=== PATIENT | male | born 1970 | race African-American/Black ===

== ENCOUNTER 2017-06-09 13:13 | Inpatient (IN) | payer OTHER ==
[2017-06-09] MEDS ORDERED: Albuterol Sulfate HFA (OR ONLY) ONE ×2 (14:56→21:00)
[2017-06-09] MEDS ORDERED: Propofol 200 MG/20 ML VIAL ONE (14:56)
[2017-06-09] MEDS ORDERED: Ondansetron HCl/PF 4 MG/2 ML Vial ONE (14:56)
[2017-06-09] MEDS ORDERED: Lidocaine 1% PF 5 ML VIAL ONE (14:56)
[2017-06-09] MEDS ORDERED: Succinylcholine Chloride 20 MG/ML 10 ml SYRINGE FS ONE (14:56)
[2017-06-09] MEDS ORDERED: Esmolol 100 MG/10 ML VIAL ONE (14:56)
[2017-06-09 15:11] LABS: #Eosinphils 0.2 thou/uL (0.0-0.7); #Lymphocytes 1.9 thou/uL (1.20-3.40); #Monocytes 1.1 thou/uL (0.11-0.59); %Basophils 0.2 % (0.0-1.0); %Eosinophils 1.5 % (0.0-10.0); %Lymphocytes 11.6 % (21.0-51.0); %Monocytes 6.6 % (0.0-10.0); Hemoglobin 12.4 g/dL (14.0-18.0); Mean Corpuscular HGB CONC 31.9 g/dL (32.0-36.0); Mean Corpuscular Hemoglobin 23.1 pg (27.0-31.0); Mean Corpuscular Volume 72.3 fl (80.0-94.0); Mean Platelet Volume 8.5 fL (7.4-10.4); Platelet Count 262 thou/uL (130-400); RBC Distribution Width 12.5 % (11.5-14.5); Red Blood Cell (RBC) Count 5.35 mill/uL (4.70-6.10); White Blood Cell (WBC) Count 16.2 thou/uL (4.8-10.8)
[2017-06-09 15:29] LABS: Hypochromia SLIGHT = 6-15 cells (100X) (0-5/hpf); MDiff Complete? YES; Microcytosis SLIGHT = 6-15 cells (100X) (0-5/hpf); Ovalocytes SLIGHT = 2-5 cells (100X) (0-1/hpf); PLT Morphology Comment Appears Adequate; Polychromasia SLIGHT = 2-3 cells (100X) (0-2/hpf); Target Cells SLIGHT = 2-5 cells (100X) (0-1/hpf)
[2017-06-09 15:32] LABS: ALT (SGPT) 11 U/L (8-55); AST (SGOT) 11 U/L (5-34); Albumin 4.1 g/dL (3.5-5.0); Alkaline Phosphatase 94 U/L (40-150); Anion Gap 15 mmol/L (10-20); BUN (Urea Nitrogen) 12 mg/dL (8.9-20.6); Bilirubin, Total 0.5 mg/dL (0.2-1.2); Calc. Creatinine Clearance 0 mL/min (70-130); Calcium 9.3 mg/dL (7.8-10.44); Carbon Dioxide 23 mmol/L (22-29); Chloride 101 mmol/L (98-107); Estimated GFR-MDRD Greater than 90; Globulin 3.2 g/dL (2.4-3.5); Glucose 186 mg/dL (70-105); Potassium 3.9 mmol/L (3.5-5.1); Protein, Total 7.3 g/dL (6.0-8.3); Sodium 135 mmol/L (136-145)
[2017-06-09] MEDS ORDERED: Morphine 4 MG/ML Carpuject ONE (17:30)
[2017-06-09] MEDS ORDERED: Clindamycin/D5W 900 mg/50 ml Premix Bag ONE (18:31)
--- NOTE | 2017-06-09 18:40 | ULT ---
SCROTAL ULTRASOUND WITH DOPPLER 06/09/17 PROVIDED CLINICAL HISTORY: Perineal abscess. FINDINGS: Right testicle measures about 3.4 x 4.8 x 2.8 cm and demonstrates a normal byrd scale sonographic casandra earance. The right epididymis appears normal. The left testicle measures about 3.2 x 4.5 x 2.4 cm and demonstrates a normal byrd scale sonographic appearance. The left epididymis appears normal. There is no evidence for hydrocele on either side. Sonographic interrogation of the skin and subcutaneous tissues at the inferior aspect of the scrotum and extending towards the anus demonstrates an irregular complex hypoechoic mass or fluid collection measuring about 3.5 cm in greatest dimension. There is no true fluid echogenicity present. Color dopp ler and spectral analysis of the testicular waveforms reveals normal flow bilaterally. IMPRESSION: 1. Complex fluid collection in the perineal region is compatible with a focal area of phlegmon/d eveloping abscess. No true fluid echogenicity is evident. 2. Otherwise normal scrotal ultrasound with doppler. POS: [facility]
[2017-06-09] MEDS ORDERED: Fentanyl 100 MCG/2 ML VIAL ONE (20:21)
[2017-06-09] MEDS ORDERED: Midazolam HCl 2 mg/2 ml Vial ONE (20:22)
--- NOTE | 2017-06-09 20:38 | HP ---
HISTORY OF PRESENT ILLNESS: This is a 46-year-old -[place] male with a history of painful no dule in his left perirectal upper leg crease as well as the base of his scrotum, pain described as 08 / sharp gotten much bigger in the last 24 hours, has a history of I&D in the area where there was a concern for Jan's gangrene. He states that he had I&D and was hospitalized on IV antibiotics, but did not require significant debridement of the scrotum. Symptoms are presenting similar this jamin rodriguez. He is diabetic. He states that his sugars have not been under great control lately. He sees Dr. Mendes. PAST MEDICAL HISTORY: Includes diabetes mellitus, coronary artery disease, hypertension, and dyslipi demia. PAST SURGICAL HISTORY: Includes I&D scrotum, I&D neck abscess. SOCIAL HISTORY: No smoking, alcohol or other drugs. REVIEW OF SYSTEMS: Ten-system review of systems otherwise negative. MEDICINES: Insulin, metformin, carvedilol, aspirin, Plavix, statin. ALLERGIES: SULFA. PHYSICAL EXAMINATION: VITAL SIGNS: His pulse is 101, blood pressure is 140/80. He is afebrile. Respirations 20. HEENT: Sclerae are anicteric. Oropharynx clear. NECK: No lymphadenopathy. CHEST: Clear. There is a small skin cyst, the xiphoid. ABDOMEN: Soft, nontender. HEART: Regular rate and rhythm. : Examination of the scrotum reveals no obvious Jan's. There is a fluctuant area at the base of the scrotum. No crepitance. There is a second small fluctuant area in the left groin crease johanny n near the perirectal area. LABORATORY AND X-RAY FINDINGS: White blood cell count 16, creatinine 0.99, glucose 186. Ultrasound shows complex fluid collection in the perineal region. ASSESSMENT: 1. Base of scrotum and perirectal abscess could be early Jan's, although I doubt it. 2. Diabetes mellitus. 3. Hypertension. 4. Coronary artery disease. PLAN: Given the potential for rapid and in terms of rapid worsening of a Jan's, we will plan on I&D tonight, keep in the hospital on IV antibiotics. Risks, benefits, alternatives discussed with t rebeca patient. We will do this tonight.
[2017-06-09] MEDS ORDERED: Dextrose 5% in Water 1,000 ML IV PRN (21:27)
[2017-06-09] MEDS ORDERED: HYDROcodone/Acetaminophen 10/325 mg Tablet PO PRN ×2 (21:27)
[2017-06-09] MEDS ORDERED: Promethazine HCl 25 MG/ML VIAL IM PRN (21:27)
[2017-06-09] MEDS ORDERED: hydrALAZINE 20 MG/ML VIAL SLOW IVP PRN (21:27)
[2017-06-09] MEDS ORDERED: Ondansetron HCl/PF 4 MG/2 ML Vial IVP PRN (21:27)
[2017-06-09] MEDS ORDERED: Morphine 4 MG/ML Carpuject SLOW IVP PRN ×2 (21:27)
[2017-06-09] MEDS ORDERED: HumaLOG 300 UNITS/3 ML VIAL SC PRN (21:27)
[2017-06-09] MEDS ORDERED: Dextrose 50% Abboject 50 ML SYRINGE SLOW IVP PRN (21:27)
--- NOTE | 2017-06-09 23:16 | OP ---
DATE OF PROCEDURE: 06/09/2017 PREOPERATIVE DIAGNOSIS: Perineal scrotal abscess. POSTOPERATIVE DIAGNOSIS: Necrotizing perineal and scrotal abscess. PROCEDURE: Incision and drainage of necrotizing infection, perineum. SURGEON: Franklyn Peace M.D. ANESTHESIA: General. ESTIMATED BLOOD LOSS: Minimal. COMPLICATIONS: None. SPECIMEN: Cultures taken for anaerobes and aerobes. TECHNIQUE: The patient was taken to the operating room and placed supine on the table. After genera l anesthetic was obtained, he was placed in the Candy Cane position lithotomy. His perineum and scro heidi were prepped and draped in a sterile fashion. Incision was made over the most fluctuant part of the infectious process at the base of his scrotum. Gross purulence was obtained. Cultures were obta ined. There was a large pocket that tract posteriorly not all the way to the anus. It did track lat erally and up towards the testicles. It did not penetrate dartos fascia. There was a small second a felix in the left groin, was opened and did not tunnel any significant direction, both are irrigated co piously. The scrotal incision was enlarged inferiorly to facilitate better packing. Everything is i rrigated and meticulous hemostasis was obtained and the wounds are packed using half-inch iodoform ga uze, sterile dressings, and Macarena-Pads. The patient was en route to recovery in stable condition. Al l instrument counts, needle counts, and lap counts were correct.
[2017-06-09 23:23] VITALS: BMI 28.8
[2017-06-10] MEDS: Piperacillin/Tazobactam 3.375 GM in Sodium Chloride 0.9% 100 ML IVPB SCH ×5 (00:11→22:19)
[2017-06-10] MEDS: Vancomycin HCl 1 GM in Premix Bag 1 BAG IVPB SCH ×3 (05:14→22:19)
[2017-06-10 06:03] LABS: Anion Gap 15 mmol/L (10-20); BUN (Urea Nitrogen) 9 mg/dL (8.9-20.6); Calc. Creatinine Clearance 161 mL/min (70-130); Carbon Dioxide 24 mmol/L (22-29); Chloride 99 mmol/L (98-107); Estimated GFR-MDRD Greater than 90; Glucose 140 mg/dL (70-105); Potassium 3.8 mmol/L (3.5-5.1); Sodium 134 mmol/L (136-145)
[2017-06-10 06:39] LABS: Band 3 % (5-11); Hemoglobin 11.2 g/dL (14.0-18.0); Lymphocytes 12 % (21-51); MDiff Complete? YES; Mean Corpuscular HGB CONC 31.9 g/dL (32.0-36.0); Mean Corpuscular Hemoglobin 23.1 pg (27.0-31.0); Mean Corpuscular Volume 72.4 fl (80.0-94.0); Monocytes 2 % (0-10); Neutrophil 83 % (42-75); PLT Morphology Comment Appears Adequate; Platelet Count 233 thou/uL (130-400); Polychromasia SLIGHT = 2-3 cells (100X) (0-2/hpf); RBC Distribution Width 12.5 % (11.5-14.5); Red Blood Cell (RBC) Count 4.87 mill/uL (4.70-6.10); White Blood Cell (WBC) Count 18.2 thou/uL (4.8-10.8)
[2017-06-10] MEDS ORDERED: Lisinopril 20 MG TAB PO SCH (09:00)
[2017-06-10] MEDS: Carvedilol 25 MG TAB PO SCH ×2 (09:30→20:13)
[2017-06-10] MEDS: Famotidine/PF 20 mg/2ml Vial SLOW IVP SCH ×2 (09:30→20:13)
[2017-06-10] MEDS: Sodium Chloride 0.9% 1,000 ML IV SCH ×2 (09:31)
[2017-06-10] MEDS ORDERED: Sodium Chloride 0.9% 1,000 ML IV SCH (10:28)
--- NOTE | 2017-06-10 10:30 | PDOC.GSPN ---
Surgery Progress Note: Subj - Subjective Patient reports: no new complaints, pain is less, tolerating a regular diet Surgery Progress Note: Obj - Vital signs Vital signs: Vital Signs - Most Recent Temp Pulse Resp BP Pulse Ox 98.8 F 105 H 14 168/90 H 99 06/10/17 08:48 06/10/17 08:48 06/10/17 08:48 06/10/17 09:30 06/10/17 08:48 - Physical Exam General: no distress Cardiovascular: regular rate and rhythm Respiratory: clear to auscultation Wound: dressing clean,dry,intact, packing in place Surgery Progress Note: Results - Labs Result Diagrams: 06/10/17 03:10 06/10/17 03:10 Lab results: Laboratory Results - last 24 hr 06/09/17 06/10/17 06/10/17 23:46 03:10 03:10 WBC 18.2 H RBC 4.87 Hgb 11.2 L Hct 35.3 L MCV 72.4 L MCH 23.1 L MCHC 31.9 L RDW 12.5 Plt Count 233 MPV 9.0 Neutrophils % (Manual) 83 H Band Neuts % (Manual) 3 L Lymphocytes % (Manual) 12 L Monocytes % (Manual) 2 Plt Morphology Comment Appears Adequate Polychromasia SLIGHT = 2-3 cells Sodium 134 L Potassium 3.8 Chloride 99 Carbon Dioxide 24 Anion Gap 15 BUN 9 Creatinine 0.81 Estimated GFR (MDRD) Greater than 90 Glucose 140 H POC Glucose 160 H Calcium 9.0 06/10/17 05:53 WBC RBC Hgb Hct MCV MCH MCHC RDW Plt Count MPV Neutrophils % (Manual) Band Neuts % (Manual) Lymphocytes % (Manual) Monocytes % (Manual) Plt Morphology Comment Polychromasia Sodium Potassium Chloride Carbon Dioxide Anion Gap BUN Creatinine Estimated GFR (MDRD) Glucose POC Glucose 200 H Calcium Surgery Progress Note: A/P - Problem (1) Scrotal abscess Current Visit: Yes Code(s): N49.2 - INFLAMMATORY DISORDERS OF SCROTUM Status : Acute (2) Diabetes mellitus Current Visit: Yes Code(s): E11.9 - TYPE 2 DIABETES MELLITUS WITHOUT COMPLICATIONS Status: Acute - Plan Plan: Continue antibiotics, wound care. Possible home tomorrow.
[2017-06-10] MEDS ORDERED: Morphine 5 MG/ML SYRINGE SLOW IVP PRN (13:58)
[2017-06-10] MEDS: Morphine 5 MG/ML SYRINGE SLOW IVP PRN (14:00)
[2017-06-10] MEDS: Lisinopril 20 MG TAB PO SCH (20:13)
[2017-06-10] MEDS ORDERED: Atorvastatin Calcium 20 MG TAB PO SCH (21:00)
[2017-06-10] MEDS ORDERED: Insulin Detemir 100 UNITS/ML 6 UNITS in Pre-Filled Syringe 1 EACH SC SCH (21:00)
[2017-06-10 21:17] LABS: Vancomycin, Trough 13.9 ug/mL
--- NOTE | 2017-06-11 03:35 | HP ---
DATE OF SERVICE: 06/10/2017. CONSULTATION/H&P CHIEF COMPLAINT: Abscess. HISTORY OF PRESENT ILLNESS: The patient has had a number of small boils and abscesses in the past, b ut reported draining painful area to perineum underneath the patient's scrotum. He presented to the emergency department and was admitted under Dr. Peace's services for incision and drainage was take n back and copious amounts of pus liberated from the 2 sites, packed, and left open to drain. Wound care services consulted and following. Testicular ultrasound showed normal scrotal Doppler. The pat ient states he has no other complaints today. He reports his pain is controlled. REVIEW OF SYSTEMS: No fevers, no chills, no cough, no congestion, no chest pain, no palpitations, no abdominal pain. No nausea, vomiting, diarrhea. Positive abscess and skin boil as above. PAST MEDICAL HISTORY: Diabetes type 2, on insulin; coronary artery disease; hypertension; hyperlipid emia. ALLERGIES: SULFA DRUGS. FAMILY HISTORY: Noncontributory. PHYSICAL EXAMINATION: VITAL SIGNS: This a.m., temperature of 98.5, pulse of 97, respiratory rate of 14, oxygen saturation 99% on room air, blood pressure of 160/83. GENERAL: The patient is alert, oriented, in no acute distress. HEENT: Head is normocephalic, atraumatic. Extraocular movements are intact. Sclerae are white. Or al mucosa is moist. NECK: Supple. HEART: Regular rate and rhythm. No murmurs auscultated at the time of exam. LUNGS: Clear to auscultation bilaterally. ABDOMEN: Soft, nontender. Positive bowel sounds throughout. EXTREMITIES: Lower extremities without cyanosis or edema. Dressing intact to perineum. LABORATORY DATA: Vancomycin trough of 13.9. Sodium of 134, potassium of 3.8, CO2 of 24, creatinine of 0.81. Blood glucose readings for the last 12 hours of 89 to 200. Albumin of 4.1, calcium of 9. No growth on blood cultures x2. Preliminary bacterial culture with gram positives and gram negatives present. ASSESSMENT AND PLAN: 1. Abscess, status post incision and drainage by General Surgery. 2. Consult for diabetes management. We will start the patient on b.i.d. Levemir with sliding scale, Accu-Cheks with q.6 hour checks at this point in time. We will discontinue glipizide while on sched uled insulin. 3. Hypertension. The patient takes 40 mg of lisinopril at home. We will change lisinopril to b.i.d . 20 mg dosing. We will follow up on blood pressure trend and adjust as needed every 24 hours. 4. The patient is on Zosyn and vancomycin regarding antibiotic coverage. We will follow up on cultu re results and Surgery's recommendations. Once available, we will likely deescalate to oral antibiot ics and the patient will likely be stable for discharge. We will continue to follow the patient.
[2017-06-11 04:13] LABS: #Basophils 0.1 thou/uL (0.0-0.2); #Eosinphils 0.3 thou/uL (0.0-0.7); #Lymphocytes 2.7 thou/uL (1.20-3.40); #Monocytes 0.8 thou/uL (0.11-0.59); #Neutrophils 7.5 thou/uL (1.40-6.50); %Basophils 0.7 % (0.0-1.0); %Eosinophils 2.3 % (0.0-10.0); %Lymphocytes 23.9 % (21.0-51.0); %Monocytes 6.8 % (0.0-10.0); %Neutrophils 66.4 % (42.0-75.0); Hemoglobin 10.9 g/dL (14.0-18.0); Mean Corpuscular HGB CONC 31.6 g/dL (32.0-36.0); Mean Corpuscular Hemoglobin 22.9 pg (27.0-31.0); Mean Corpuscular Volume 72.4 fl (80.0-94.0); Mean Platelet Volume 8.3 fL (7.4-10.4); Platelet Count 239 thou/uL (130-400); RBC Distribution Width 12.4 % (11.5-14.5); Red Blood Cell (RBC) Count 4.77 mill/uL (4.70-6.10); White Blood Cell (WBC) Count 11.2 thou/uL (4.8-10.8)
[2017-06-11 04:35] LABS: Anion Gap 11 mmol/L (10-20); BUN (Urea Nitrogen) 11 mg/dL (8.9-20.6); Calc. Creatinine Clearance 150 mL/min (70-130); Calcium 8.7 mg/dL (7.8-10.44); Carbon Dioxide 28 mmol/L (22-29); Chloride 100 mmol/L (98-107); Estimated GFR-MDRD Greater than 90; Glucose 113 mg/dL (70-105); Potassium 3.5 mmol/L (3.5-5.1); Sodium 135 mmol/L (136-145)
[2017-06-11] MEDS: Piperacillin/Tazobactam 3.375 GM in Sodium Chloride 0.9% 100 ML IVPB SCH ×2 (05:30→12:07)
[2017-06-11] MEDS: Vancomycin HCl 1 GM in Premix Bag 1 BAG IVPB SCH (05:30)
[2017-06-11] MEDS: Carvedilol 25 MG TAB PO SCH (08:20)
[2017-06-11] MEDS: Lisinopril 20 MG TAB PO SCH (08:20)
[2017-06-11] MEDS ORDERED: Insulin Detemir 100 UNITS/ML 7 UNITS in Pre-Filled Syringe 1 EACH SC SCH (09:00)
[2017-06-11] MEDS ORDERED: Famotidine 20 MG TAB PO SCH (09:00)
[2017-06-11] MEDS ORDERED: Insulin Detemir 100 UNITS/ML 6 UNITS in Pre-Filled Syringe 1 EACH SC SCH (09:00)
[2017-06-11] MEDS: Morphine 5 MG/ML SYRINGE SLOW IVP PRN (10:32)
[2017-06-11 11:44] VITALS: BP 139/82; TEMP 99
--- NOTE | 2017-06-11 11:59 | DIS ---
DATE OF ADMISSION: 06/09/2017 DATE OF DISCHARGE: 06/11/2017 ADMITTING DIAGNOSIS: Scrotal abscess. DISCHARGE DIAGNOSIS: Scrotal abscess. PROCEDURES: Incision and drainage of scrotal abscess by Dr. Peace, without complication. CONDITION AT DISCHARGE: Improved. STAFF: Dr. Peace. HOSPITAL COURSE: See hospital chart for details of hospitalization.
== END 2017-06-11 14:13 | disposition home or self-care (01) | DRG 728 ==
LOC: ERS 13:13 → SDC 21:29 → SURG A 22:27
PROVIDERS: ADMIT Surgery; ATTEND Surgery
PROC: 0V950ZX Drainage of Scrotum, Open Approach, Diagnostic (ICD-10-PCS; principal; 2017-06-09)
DX: N49.2 Inflammatory disorders of scrotum (principal); E11.9 Type 2 diabetes mellitus without complications; I10 Essential (primary) hypertension; I25.10 Atherosclerotic heart disease of native coronary artery without angina pectoris; Z79.4 Long term (current) use of insulin; E78.5 Hyperlipidemia, unspecified
CPT/HCPCS: 36415; 36416; 76870; 80048; 80053; 80202; 83605; 85025; 87040; 87070; 87205; 93976; 96365; 96375; J2270; J0360; J1815; J2001; J2250; J2405; J2543; J2704; J3010; J3370; J3490; J7050; S0028

== ENCOUNTER 2018-04-25 13:55 | Emergency (ER) | payer OTHER ==
[2018-04-25] MEDS ORDERED: HYDROcodone/Acetaminophen 10/325 mg Tablet ONE (15:40)
== END 2018-04-25 17:04 | disposition home or self-care (01) ==
LOC: ERS 13:55
DX: M54.32 Sciatica, left side (principal); E11.9 Type 2 diabetes mellitus without complications; I10 Essential (primary) hypertension; Z79.899 Other long term (current) drug therapy; Z79.84 Long term (current) use of oral hypoglycemic drugs
CPT/HCPCS: 99283

== ENCOUNTER 2018-09-12 23:41 | Inpatient (IN) | payer OTHER ==
[2018-09-12] MEDS ORDERED: Morphine 4 MG/ML VIAL ONE (23:48)
[2018-09-12] MEDS ORDERED: Ondansetron PF 4 MG/2 ML Vial ONE (23:57)
[2018-09-13] MEDS ORDERED: Morphine 4 MG/ML VIAL ONE (00:12)
[2018-09-13 00:20] LABS: INR-International Normal Ratio 1.2; Prothrombin Time 14.8 SEC (12.0-14.7)
--- NOTE | 2018-09-13 00:20 | RAD ---
Radiograph chest one view: HISTORY: Chest pain FINDINGS: Nonspecific small, faint areas of increased density in the bilateral lower lung zones. No consolidati on or pulmonary edema. No cardiomegaly or pneumothorax. IMPRESSION: No definite acute findings.
[2018-09-13 00:21] LABS: PTT 64.4 SEC (22.9-36.1)
[2018-09-13 00:25] LABS: ALT (SGPT) 12 U/L (8-55); AST (SGOT) 12 U/L (5-34); Albumin 4.3 g/dL (3.5-5.0); Alkaline Phosphatase 94 U/L (40-150); Anion Gap 18 mmol/L (10-20); BUN (Urea Nitrogen) 15 mg/dL (8.9-20.6); Bilirubin, Total 0.3 mg/dL (0.2-1.2); Calc. Creatinine Clearance 0 mL/min (70-130); Calcium 9.7 mg/dL (7.8-10.44); Carbon Dioxide 19 mmol/L (22-29); Chloride 103 mmol/L (98-107); Estimated GFR-MDRD 90; Globulin 3.1 g/dL (2.4-3.5); Glucose 203 mg/dL (70-105); Potassium 3.9 mmol/L (3.5-5.1); Protein, Total 7.4 g/dL (6.0-8.3); Sodium 136 mmol/L (136-145)
[2018-09-13 00:26] LABS: Hemoglobin 12.6 g/dL (14.0-18.0); Mean Corpuscular HGB CONC 30.7 g/dL (32.0-36.0); Mean Corpuscular Hemoglobin 21.9 pg (27.0-31.0); Mean Corpuscular Volume 71.5 fL (78.0-98.0); Mean Platelet Volume 8.9 fL (7.4-10.4); Platelet Count 230 thou/uL (130-400); RBC Distribution Width 12.6 % (11.5-14.5); Red Blood Cell (RBC) Count 5.75 mill/uL (4.70-6.10); White Blood Cell (WBC) Count 12.3 thou/uL (4.8-10.8)
[2018-09-13 00:29] LABS: #Basophils 0.1 thou/uL (0.0-0.2); #Eosinphils 0.2 thou/uL (0.0-0.7); #Lymphocytes 3.3 thou/uL (1.20-3.40); #Monocytes 0.6 thou/uL (0.11-0.59); #Neutrophils 8.1 thou/uL (1.40-6.50); %Basophils 0.4 % (0.0-1.0); %Eosinophils 1.2 % (0.0-10.0); %Lymphocytes 27.2 % (21.0-51.0); %Monocytes 5.1 % (0.0-10.0); Platelet Morphology Comment Appears Adequate
[2018-09-13] MEDS ORDERED: Nitroglycerin 50 MG/250 ML BOT 250 ML ONE (00:37)
[2018-09-13] MEDS ORDERED: Fentanyl 100 MCG/2 ML VIAL ONE (00:39)
[2018-09-13] MEDS ORDERED: Midazolam HCl 2 mg/2 ml Vial ONE (00:39)
[2018-09-13] MEDS ORDERED: Heparin 10,000 UNITS/ 10 ML VIAL ONE (01:00)
[2018-09-13] MEDS ORDERED: Metoprolol Tartrate 5 MG/5 ML VIAL ONE (01:00)
[2018-09-13] MEDS ORDERED: Clopidogrel Bisulfate 300 MG TAB ONE (01:17)
[2018-09-13] MEDS ORDERED: Aggrastat 12.5 MG/250 ML 250 ML ONE (01:17)
[2018-09-13 01:29] LABS: CKMB 3.7 ng/mL (0-6.6)
[2018-09-13] MEDS ORDERED: Milk Of Magnesia 30 ML UDCUP PO PRN (01:29)
[2018-09-13] MEDS ORDERED: Zolpidem Tartrate 5 MG TAB PO PRN (01:29)
[2018-09-13] MEDS ORDERED: Acetaminophen/Codeine 30-300mg Tablet PO PRN (01:29)
[2018-09-13] MEDS ORDERED: Mag-Al 1200 mg/1200 mg/30 ML UDCUP PO PRN (01:29)
[2018-09-13] MEDS ORDERED: Sodium Chloride 0.9% 1,000 ML IV SCH (01:30)
[2018-09-13] MEDS ORDERED: Aggrastat 12.5 MG/250 ML 250 ML IVPB SCH (01:30)
--- NOTE | 2018-09-13 02:22 | HP ---
DATE OF CONSULTATION: CHIEF COMPLAINT: Acute HI. HISTORY OF PRESENT ILLNESS: Mr. Denise is a 48-year-old gentleman with history of diabetes mellitus, tobacco abuse, and previous CAD, who recently presented with acute onset chest pain. The pain began at 6 p.m. He presented to the emergency room with intermittent pain. He had ST-segment elevation noted inferiorly. The patient underwent stent placement in 2013. He then underwent repeat angiography for more symptoms noted in 2014. Stent did have an area of concern in the proximal region estimated at 20 % to 30%. There was, otherwise, no significant disease. PAST MEDICAL HISTORY: As above including hyperlipidemia and hypertension. ALLERGIES: SULFA. FAMILY HISTORY: Negative. MEDICATIONS: List not provided, but states he is on clopidogrel. REVIEW OF SYSTEMS: A 10-point review of systems is reviewed and as above, otherwise negative. PHYSICAL EXAMINATION: GENERAL: Patient is a pleasant male who is in no acute distress. The patient appears their stated age. VITAL SIGNS: Blood pressure 136/60, pulse is 80, respirations 20. NEUROLOGIC: The patient is alert and oriented x3 with no focal neurologic deficits. HEENT: Sclerae without icterus. Mouth has moist mucous membranes with normal pallor. NECK: No JVD. Carotid upstroke brisk. No bruits bilaterally. LUNGS: Clear to auscultation with unlabored respirations. BACK: No scoliosis or kyphosis. CARDIAC: Regular rate and rhythm with normal S1 and S2. No S3 or S4 noted. No significant rubs, murmurs, thrills, or gallops noted throughout the precordium. PMI is not displaced. There is no parasternal heave. ABDOMEN: Soft, nontender, nondistended. No peritoneal signs present. No hepatosplenomegaly. No abnormal striae. EXTREMITIES: 2+ femoral and 2+ dorsalis pedis pulses. No cyanosis, clubbing, or edema. SKIN: No gross abnormalities. PERTINENT LABORATORY DATA: Pending. IMPRESSION: 1. Acute myocardial infarction. 2. Tobacco abuse. 3. Diabetes mellitus. RECOMMENDATIONS: Mr. Denise has occluded his previous stent. We, therefore, recommend urgent coronary angiography plus PCI. I discussed the procedure in full detail with Mr. Denise. Risks included, but not limited to the following. I discussed the procedure in full detail with the patient. The risks of the procedure were also discussed. The risks of the procedure include but are not limited to the following: , stroke, HI, need for emergency surgery, loss of limb, bleeding, and infection, as well as a reaction to the dye causing kidney failure and needing long-term dialysis. I also discussed the risks of PCI to include all of the above including coronary dissection and perforation in addition to acute stent thrombosis and restenosis. All questions about the procedure were answered. Given the above, the patient agreed to proceed with coronary angiography and possible PCI. All questions answered. Given the above, the patient agreed to proceed with above procedure. I also discussed drug coated versus nondrug-coated stent placement. There were no contraindications to proceed if needed. Further recommendations, pending the above. Job ID: [id number]
[2018-09-13 02:50] LABS: CKMB 13.8 ng/mL (0-6.6)
[2018-09-13 08:49] LABS: CKMB 60.7 ng/mL (0-6.6); Troponin I 8.587 ng/mL (< 0.028)
[2018-09-13] MEDS: Clopidogrel Bisulfate 75 MG TAB PO SCH (08:55)
[2018-09-13] MEDS: Aspirin Chewable 81 MG TAB PO SCH (08:55)
[2018-09-13] MEDS ORDERED: Iopamidol 370 76% 50 ML VIAL FS ONE (15:44)
[2018-09-13] MEDS ORDERED: Iopamidol 370 76% 100 ML VIAL ONE (15:44)
[2018-09-13] MEDS ORDERED: Lisinopril 20 MG TAB PO SCH (17:00)
[2018-09-13] MEDS: metFORMIN 500 MG TAB PO SCH (18:03)
[2018-09-13] MEDS: Carvedilol 3.125 MG TAB PO SCH (18:14)
[2018-09-13] MEDS ORDERED: Insulin Regular 300 UNITS/3 ML VIAL SC PRN (18:17)
[2018-09-13] MEDS ORDERED: Dextrose 50% Abboject 50 ML SYRINGE IVP PRN (18:17)
[2018-09-13] MEDS ORDERED: Dextrose 5% in Water 1,000 ML IV PRN (18:17)
[2018-09-13] MEDS ORDERED: Atorvastatin Calcium 40 MG TAB PO SCH (21:00)
[2018-09-14 05:13] LABS: #Eosinphils 0.2 thou/uL (0.0-0.7); #Lymphocytes 2.8 thou/uL (1.20-3.40); #Monocytes 0.6 thou/uL (0.11-0.59); #Neutrophils 7.2 thou/uL (1.40-6.50); %Basophils 0.3 % (0.0-1.0); %Eosinophils 1.6 % (0.0-10.0); %Lymphocytes 25.9 % (21.0-51.0); %Monocytes 5.4 % (0.0-10.0); %Neutrophils 66.8 % (42.0-75.0); Hemoglobin 11.5 g/dL (14.0-18.0); Mean Corpuscular Hemoglobin 23.1 pg (27.0-31.0); Mean Corpuscular Volume 72.3 fL (78.0-98.0); Mean Platelet Volume 8.6 fL (7.4-10.4); Platelet Count 185 thou/uL (130-400); RBC Distribution Width 12.4 % (11.5-14.5); Red Blood Cell (RBC) Count 4.96 mill/uL (4.70-6.10); White Blood Cell (WBC) Count 10.8 thou/uL (4.8-10.8)
[2018-09-14 05:39] LABS: ALT (SGPT) 17 U/L (8-55); AST (SGOT) 32 U/L (5-34); Albumin 3.6 g/dL (3.5-5.0); Alkaline Phosphatase 78 U/L (40-150); Anion Gap 9 mmol/L (10-20); BUN (Urea Nitrogen) 9 mg/dL (8.9-20.6); Bilirubin, Total 0.5 mg/dL (0.2-1.2); Calc. Creatinine Clearance 159 mL/min (70-130); Calcium 8.5 mg/dL (7.8-10.44); Carbon Dioxide 26 mmol/L (22-29); Chloride 102 mmol/L (98-107); Estimated GFR-MDRD Greater than 90; Globulin 2.6 g/dL (2.4-3.5); Glucose 129 mg/dL (70-105); Potassium 3.8 mmol/L (3.5-5.1); Protein, Total 6.2 g/dL (6.0-8.3); Sodium 133 mmol/L (136-145)
[2018-09-14] MEDS: Lisinopril 20 MG TAB PO SCH (08:09)
[2018-09-14] MEDS: Carvedilol 3.125 MG TAB PO SCH (08:09)
[2018-09-14] MEDS: metFORMIN 500 MG TAB PO SCH ×2 (08:09→16:32)
[2018-09-14] MEDS: Aspirin Chewable 81 MG TAB PO SCH (08:09)
[2018-09-14] MEDS: Clopidogrel Bisulfate 75 MG TAB PO SCH (08:10)
[2018-09-14] MEDS ORDERED: Carvedilol 3.125 MG TAB PO SCH (08:38)
[2018-09-14] MEDS ORDERED: Carvedilol 6.25 MG TAB PO SCH (08:45)
[2018-09-14] MEDS ORDERED: TICAGRELOR 90 MG TABLET PO SCH (09:00)
--- NOTE | 2018-09-14 09:11 | PRG ---
DATE OF SERVICE: 09/14/2018 SUBJECTIVE: Mr. Denise is doing well, no complaints. No chest pain or pressure. He has occasional palpitation. From his description, it sounds like a premature contraction. OBJECTIVE: VITAL SIGNS: On examination, his blood pressure is high 153/92, pulse is 90. LUNGS: Clear. CARDIAC: Normal S1, normal S2. ABDOMEN: Soft and nontender. : Groin is not tender at the insertion site. IMAGING STUDIES: Reviewed the cardiac catheterization films. The patient has a long-segment disease in the LAD. Successful stent implantation in the right coronary artery. CONCLUSION: 1. Status post emergent stent implantation, right coronary artery. 2. Long-segment disease in the left anterior descending artery. 3. History of noncompliance. 4. History of diabetes. 5. History of hypercholesterolemia. PLAN: 1. Change to Brilinta. He is, I believe, high risk patient. 2. Aspirin. 3. Increase statins. 4. Increase carvedilol. 5. Probably home tomorrow. Stressed the critical importance of taking medicines as prescribed. Job ID: [id number]
[2018-09-14] MEDS: Carvedilol 6.25 MG TAB PO SCH (16:31)
[2018-09-14] MEDS ORDERED: Atorvastatin Calcium 40 MG TAB PO SCH (21:00)
[2018-09-14] MEDS: TICAGRELOR 90 MG TABLET PO SCH (21:37)
[2018-09-15 06:12] VITALS: BMI 27.6
[2018-09-15 06:52] LABS: Anion Gap 14 mmol/L (10-20); BUN (Urea Nitrogen) 12 mg/dL (8.9-20.6); Calc. Creatinine Clearance 145 mL/min (70-130); Calcium 9.5 mg/dL (7.8-10.44); Carbon Dioxide 23 mmol/L (22-29); Cardiac Risk 4.7 (Less than 4.5); Chloride 101 mmol/L (98-107); Cholesterol 170 mg/dl (< 200 Desired); Estimated GFR-MDRD Greater than 90; Glucose 106 mg/dL (70-105); HDL Cholesterol 36 mg/dL (>60 Neg Risk); LDL Cholesterol, Calculated 111 mg/dL; Potassium 3.7 mmol/L (3.5-5.1); Sodium 134 mmol/L (136-145); Triglycerides 113 mg/dL (Less than 150)
[2018-09-15] MEDS: metFORMIN 500 MG TAB PO SCH (08:51)
[2018-09-15] MEDS: Aspirin Chewable 81 MG TAB PO SCH (08:51)
[2018-09-15] MEDS: Lisinopril 20 MG TAB PO SCH (08:52)
[2018-09-15] MEDS: Carvedilol 6.25 MG TAB PO SCH (08:52)
[2018-09-15 08:53] VITALS: BP 153/88
[2018-09-15] MEDS ORDERED: Clopidogrel Bisulfate 300 MG TAB PO SCH (09:00)
[2018-09-15] MEDS: TICAGRELOR 90 MG TABLET PO SCH (09:16)
[2018-09-15 12:11] VITALS: TEMP 98.4
[2018-09-15] MEDS ORDERED: Carvedilol 25 MG TAB PO SCH (17:00)
[2018-09-15] MEDS ORDERED: metFORMIN 500 MG TAB PO SCH (17:00)
[2018-09-15] MEDS ORDERED: Rosuvastatin 20 MG TAB PO SCH (21:00)
--- NOTE | 2018-09-16 03:03 | DIS ---
DATE OF ADMISSION: 09/13/2018 DATE OF DISCHARGE: 09/15/2018 FINAL DIAGNOSES: 1. Acute inferior myocardial infarction. 2. Hypertension. 3. Diabetes. 4. History of smoking. MEDICATIONS: At time of discharge: 1. Aspirin 81 mg a day. 2. Carvedilol 25 mg twice a day. 3. Lisinopril 40 mg a day. 4. Crestor 40 mg a day. 5. Plavix 75 mg a day. 6. The diabetes medicines are unchanged. Please see admission note for full details. HOSPITAL COURSE: This gentleman came to the hospital with chest pain and he was found to be having an acute inferior myocardial infarction. He was taken to the cardiac catheterization lab by Dr. Grant. The right coronary artery was occluded where stents have been placed approximately 4 to 5 years ago. The patient had 2 stents placed, 3.0 x 20 mm drug coated stents were placed in 2 locations and post dilated to 3.5 mm. The patient tolerated this well. Pertinent laboratory; the troponin peak was only 8.587. Other laboratory; the patient's cholesterol was on the 2nd was 111, that was on atorvastatin that after being in the hospital a couple of days. Potassium was 3.7, sodium was 134. The patient did well here in the hospital. Echocardiogram shows ejection fraction of 50% to 55%, inferior wall hypokinetic. The patient has a long LAD lesion to be treated medically at this time. The patient has not been coming in for followup and he has also been smoking, he may be able to be treated medically. If he has recurrent angina, stenting could be done in the LAD, but it is a very long area of disease, long lesion, try medical therapy first and also see how he does with being compliant with medicines and followup. The previous patient's stent was placed about 4 years ago in November 2014. The patient will be released home this time to come back and see me as well as Dr. Mendes. Job ID: [id number]
[2018-09-16] MEDS ORDERED: Lisinopril 20 MG TAB PO SCH (09:00)
[2018-09-16] MEDS ORDERED: Clopidogrel Bisulfate 75 MG TAB PO SCH (09:00)
== END 2018-09-15 13:16 | disposition home or self-care (01) | DRG 247 ==
LOC: ERS 23:41 → CCU 09-13 00:06
PROVIDERS: ADMIT Internal Medicine Cardiovascular Disease; ATTEND Internal Medicine Cardiovascular Disease
PROC: 027035Z Dilation of Coronary Artery, One Artery with Two Drug-eluting Intraluminal Devices, Percutaneous Approach (ICD-10-PCS; principal; 2018-09-13)
PROC: 4A023N7 Measurement of Cardiac Sampling and Pressure, Left Heart, Percutaneous Approach (ICD-10-PCS; 2018-09-13)
PROC: B2151ZZ Fluoroscopy of Left Heart using Low Osmolar Contrast (ICD-10-PCS; 2018-09-13)
PROC: B2111ZZ Fluoroscopy of Multiple Coronary Arteries using Low Osmolar Contrast (ICD-10-PCS; 2018-09-13)
DX: I21.19 ST elevation (STEMI) myocardial infarction involving other coronary artery of inferior wall (principal); I10 Essential (primary) hypertension; E11.9 Type 2 diabetes mellitus without complications; Z87.891 Personal history of nicotine dependence; Z88.2 Allergy status to sulfonamides; Z79.4 Long term (current) use of insulin; Z79.899 Other long term (current) drug therapy
CPT/HCPCS: 36415; 36416; 71045; 76942; 80048; 80053; 80061; 82553; 84484; 85025; 85347; 85610; 85730; 86850; 86900; 86901; 92941; 92973; 93005; 93010; 93306; 93458; 93798; 96365; 96374; 96375; 99152; 99153; C1725; C1757; C1769; C1874; C1887; C9606; J1644; J2250; J2270; J2405; J3010; J3246; Q9967

== ENCOUNTER 2021-05-11 16:38 | Inpatient (IN) | payer OTHER ==
[~2021-05-11 16:38] MED LIST: Succinylcholine Chloride 200 MG/10 ML VIAL ONE
[2021-05-11 17:35] LABS: #Eosinphils 0.1 thou/uL (0.0-0.7); #Lymphocytes 1.6 thou/uL (1.20-3.40); #Monocytes 0.6 thou/uL (0.11-0.59); #Neutrophils 11.5 thou/uL (1.40-6.50); %Basophils 0.3 % (0.0-1.0); %Eosinophils 0.7 % (0.0-10.0); %Lymphocytes 11.6 % (21.0-51.0); %Monocytes 4.1 % (0.0-10.0); %Neutrophils 83.3 % (42.0-75.0); Hemoglobin 11.3 g/dL (14.0-18.0); Mean Corpuscular HGB CONC 32.2 g/dL (32.0-36.0); Mean Corpuscular Hemoglobin 23.8 pg (27.0-31.0); Mean Corpuscular Volume 73.9 fL (78.0-98.0); Mean Platelet Volume 9.9 fL (7.4-10.4); Platelet Count 170 thou/uL (130-400); RBC Distribution Width 12.7 % (11.5-14.5); Red Blood Cell (RBC) Count 4.75 mill/uL (4.70-6.10); White Blood Cell (WBC) Count 13.9 thou/uL (4.8-10.8)
[2021-05-11 17:52] LABS: Hypochromia SLIGHT = 6-15 cells (100X) (0-5/hpf); MDiff Complete? YES; Microcytosis SLIGHT = 6-15 cells (100X) (0-5/hpf); Platelet Morphology Comment Appears Adequate; Polychromasia SLIGHT = 2-3 cells (100X) (0-2/hpf)
[2021-05-11] MEDS ORDERED: Morphine 4 MG/ML VIAL ONE ×2 (17:55→18:58)
[2021-05-11 17:58] LABS: ALT (SGPT) 27 U/L (8-55); AST (SGOT) 30 U/L (5-34); Alkaline Phosphatase 77 U/L (40-110); Anion Gap 11 mmol/L (10-20); BUN (Urea Nitrogen) 19 mg/dL (8.4-25.7); Bilirubin, Total 0.5 mg/dL (0.2-1.2); Calc. Creatinine Clearance 0 mL/min (70-130); Calcium 8.8 mg/dL (7.8-10.44); Carbon Dioxide 23 mmol/L (22-29); Chloride 106 mmol/L (98-107); Globulin 2.7 g/dL (2.4-3.5); Glucose 347 mg/dL (70-105); Lipase 23 U/L (8-78); Potassium 4.3 mmol/L (3.5-5.1); Protein, Total 6.7 g/dL (6.0-8.3); Sodium 136 mmol/L (136-145)
[2021-05-11] MEDS ORDERED: Aspirin 325 MG TAB ONE (17:59)
[2021-05-11 18:16] LABS: CKMB 4.8 ng/mL (0-6.6)
[2021-05-11] MEDS ORDERED: Furosemide 40 MG/4 ML VIAL ONE (19:00)
[2021-05-11] MEDS ORDERED: Guaifenesin DM 100-10/5 ML UDCUP PO PRN (19:47)
[2021-05-11] MEDS ORDERED: Bisacodyl 5 MG TAB PO PRN (19:47)
[2021-05-11] MEDS ORDERED: Acetaminophen 325 MG TAB PO PRN (19:47)
[2021-05-11] MEDS ORDERED: Ondansetron PF 4 MG/2 ML Vial IVP PRN (19:47)
[2021-05-11] MEDS ORDERED: Senokot S 8.6-50 MG TAB PO PRN (19:47)
[2021-05-11] MEDS ORDERED: Nitroglycerin 0.4 MG TAB (25 Tab Bottle) SL PRN (19:53)
[2021-05-11] MEDS ORDERED: Morphine 4 MG/ML VIAL SLOW IVP PRN ×2 (19:53→19:58)
[2021-05-11] MEDS ORDERED: Melatonin 3 MG TAB PO PRN (19:54)
[2021-05-11] MEDS ORDERED: Nicotine 21 MG PATCH TD SCH (20:00)
[2021-05-11] MEDS ORDERED: HumaLOG 300 UNITS/3 ML VIAL SC PRN (20:23)
[2021-05-11] MEDS ORDERED: Dextrose 50% Abboject 50 ML SYRINGE SLOW IVP PRN (20:23)
[2021-05-11] MEDS ORDERED: Dextrose 5% in Water 1,000 ML IV PRN (20:23)
[2021-05-11] MEDS ORDERED: Carvedilol 25 MG TAB PO SCH (20:30)
[2021-05-11] MEDS ORDERED: Heparin 5,000 UNITS/ML VIAL SC SCH (21:00)
[2021-05-11] MEDS ORDERED: Famotidine/PF 20 mg/2ml Vial SLOW IVP SCH (21:00)
[2021-05-11] MEDS ORDERED: Enoxaparin Sodium 100 MG/ML SYRINGE ONE (21:39)
[2021-05-11 21:44] LABS: CKMB 11.3 ng/mL (0-6.6)
[2021-05-11] MEDS ORDERED: Lidocaine 1% (PF) 30 ML VIAL ONE (22:13)
[2021-05-11] MEDS ORDERED: Aggrastat 12.5 MG/250 ML 250 ML ONE (22:51)
[2021-05-11 22:53] LABS: SARS-CoV-2 NAA Rapid Test Not Detected (NotDetected)
[2021-05-11] MEDS ORDERED: Heparin 10,000 UNITS/ 10 ML VIAL ONE (22:59)
[2021-05-11] MEDS ORDERED: Aggrastat 12.5 MG/250 ML 250 ML IVPB SCH (23:45)
[2021-05-11] MEDS ORDERED: Sodium Chloride 0.9% 1,000 ML IV SCH (23:45)
[2021-05-11] MEDS ORDERED: Ondansetron PF 4 MG/2 ML Vial ONE (23:56)
[2021-05-12] MEDS ORDERED: Benzonatate 100 MG CAP PO PRN (01:27)
[2021-05-12 02:20] LABS: Hemoglobin 12.7 g/dL (14.0-18.0); Platelet Count 198 thou/uL (130-400)
[2021-05-12] MEDS: HumaLOG 300 UNITS/3 ML VIAL SC PRN ×5 (02:25→21:51)
[2021-05-12] MEDS ORDERED: Sodium Chloride 0.9% 1,000 ML IV SCH ×2 (02:27→06:00)
[2021-05-12] MEDS: Rosuvastatin 20 MG TAB PO SCH ×2 (02:31→21:52)
[2021-05-12] MEDS ORDERED: Furosemide 40 MG/4 ML VIAL ONE (02:42)
[2021-05-12] MEDS ORDERED: Lorazepam 2 MG/ML VIAL SLOW IVP SCH (02:45)
[2021-05-12] MEDS ORDERED: Furosemide 20 MG/2 ML VIAL SLOW IVP SCH ×3 (02:45→09:00)
[2021-05-12] MEDS ORDERED: Nitroglycerin 50 MG/250 ML BOT 250 ML ONE (02:49)
[2021-05-12] MEDS ORDERED: Morphine 4 MG/ML VIAL ONE (02:49)
[2021-05-12] MEDS: Lorazepam 2 MG/ML VIAL ONE ×2 (02:54→03:26)
[2021-05-12] MEDS ORDERED: Propofol 1,000 MG/100 ML VIAL IV ONE (02:57)
[2021-05-12] MEDS ORDERED: Succinylcholine 200 MG/10 ml SYRINGE FS SCH (03:00)
[2021-05-12] MEDS ORDERED: Morphine 4 MG/ML VIAL SLOW IVP SCH (03:00)
[2021-05-12 03:04] LABS: Actual Bicarbonate (HCO3a) 17.6 mEq/L (22-28); Base Excess (BEa) -6.1 mEq/L (-2.0 to +3.0); CO2 Tension 29.8 mmHg (35.0-45.0); Calcium, Ionized (arterial) 1.08 mmol/L (1.12-1.30); Carboxyhemoglobin (COHb) 0.7 gm% (0.0-3.0); Hemoglobin (Hb) 13.2 g/dL (14.0-18.0); Potassium - ABG Lab 4.32 mmol/L (3.70-5.30); pH, Arterial 7.39 (7.35-7.45)
[2021-05-12 03:05] LABS: O2 Tension (PaO2), arterial 41.5 mmHg (80.0-100.0)
[2021-05-12 03:06] LABS: Puncture Site Arterial Line
[2021-05-12] MEDS: Propofol 1,000 MG/100 ML VIAL IV PRN ×2 (03:06→18:17)
[2021-05-12] MEDS ORDERED: Morphine 4 MG/ML VIAL SLOW IVP PRN (03:42)
[2021-05-12] MEDS ORDERED: Fentanyl BOLUS 250 ML IVPB PRN (03:45)
[2021-05-12] MEDS ORDERED: Nitroglycerin 50 MG/250 ML BOT 250 ML IVPB SCH (03:45)
[2021-05-12] MEDS ORDERED: Lorazepam 2 MG/ML VIAL SLOW IVP PRN (03:45)
[2021-05-12] MEDS ORDERED: Morphine 2 MG/ML VIAL SLOW IVP PRN (03:45)
[2021-05-12] MEDS ORDERED: Fentanyl CADD 100 ML IV SCH (03:45)
[2021-05-12] MEDS ORDERED: Propofol BOLUS 1,000 MG/100 ML VIAL IV PRN (03:45)
[2021-05-12] MEDS ORDERED: DISCONTINUE PREVIOUS NARCOTIC PAIN MEDICATIONS AND BENZODIAZEPINES FS SCH (03:45)
[2021-05-12 04:02] LABS: Actual Bicarbonate (HCO3a) 19.6 mEq/L (22-28); Base Excess (BEa) -6.1 mEq/L (-2.0 to +3.0); CO2 Tension 39.8 mmHg (35.0-45.0); Calcium, Ionized (arterial) 1.05 mmol/L (1.12-1.30); Carboxyhemoglobin (COHb) 0.5 gm% (0.0-3.0); Hemoglobin (Hb) 12.8 g/dL (14.0-18.0); O2 Tension (PaO2), arterial 120.6 mmHg (80.0-100.0); Potassium - ABG Lab 5.13 mmol/L (3.70-5.30); pH, Arterial 7.31 (7.35-7.45)
[2021-05-12 04:04] LABS: CKMB 375.2 ng/mL (0-6.6)
[2021-05-12] MEDS ORDERED: Lidocaine 1% (PF) 30 ML VIAL FS SCH (04:30)
[2021-05-12 05:03] LABS: #Basophils 0.1 thou/uL (0.0-0.2); #Monocytes 0.6 thou/uL (0.11-0.59); #Neutrophils 15.7 thou/uL (1.40-6.50); %Basophils 0.7 % (0.0-1.0); %Lymphocytes 5.7 % (21.0-51.0); %Monocytes 3.5 % (0.0-10.0); %Neutrophils 90.1 % (42.0-75.0); Mean Corpuscular HGB CONC 32.2 g/dL (32.0-36.0); Mean Corpuscular Hemoglobin 23.5 pg (27.0-31.0); Mean Platelet Volume 10.7 fL (7.4-10.4); Platelet Count 194 thou/uL (130-400); RBC Distribution Width 12.9 % (11.5-14.5); Red Blood Cell (RBC) Count 5.08 mill/uL (4.70-6.10); White Blood Cell (WBC) Count 17.5 thou/uL (4.8-10.8)
[2021-05-12] MEDS ORDERED: Lidocaine 1% (PF) 30 ML VIAL ONE (05:21)
[2021-05-12 05:24] LABS: ALT (SGPT) 107 U/L (8-55); AST (SGOT) 473 U/L (5-34); Albumin 3.8 g/dL (3.5-5.0); Alkaline Phosphatase 84 U/L (40-110); Anion Gap 12 mmol/L (10-20); BUN (Urea Nitrogen) 23 mg/dL (8.4-25.7); Bilirubin, Total 0.8 mg/dL (0.2-1.2); Calc. Creatinine Clearance 79 mL/min (70-130); Calcium 8.5 mg/dL (7.8-10.44); Carbon Dioxide 21 mmol/L (22-29); Cardiac Risk 3.8 (Less than 4.5); Chloride 105 mmol/L (98-107); Cholesterol 178 mg/dl (< 200 Desired); Globulin 3.1 g/dL (2.4-3.5); Glucose 429 mg/dL (70-105); HDL Cholesterol 47 mg/dL (>60 Neg Risk); LDL Cholesterol, Calculated 111 mg/dL; Potassium 5.7 mmol/L (3.5-5.1); Protein, Total 6.9 g/dL (6.0-8.3); Sodium 132 mmol/L (136-145); Triglycerides 102 mg/dL (Less than 150)
[2021-05-12 06:29] LABS: #Basophils 0.1 thou/uL (0.0-0.2); #Lymphocytes 1.3 thou/uL (1.20-3.40); #Monocytes 0.7 thou/uL (0.11-0.59); #Neutrophils 15.6 thou/uL (1.40-6.50); %Basophils 0.6 % (0.0-1.0); %Eosinophils 0.1 % (0.0-10.0); %Lymphocytes 7.3 % (21.0-51.0); %Neutrophils 87.9 % (42.0-75.0); Hemoglobin 12.6 g/dL (14.0-18.0); Mean Corpuscular HGB CONC 31.3 g/dL (32.0-36.0); Mean Corpuscular Hemoglobin 23.5 pg (27.0-31.0); Mean Corpuscular Volume 75.1 fL (78.0-98.0); Mean Platelet Volume 10.5 fL (7.4-10.4); Platelet Count 189 thou/uL (130-400); Red Blood Cell (RBC) Count 5.34 mill/uL (4.70-6.10); White Blood Cell (WBC) Count 17.7 thou/uL (4.8-10.8)
[2021-05-12 06:42] LABS: Hemoglobin A1c 8.6 % (4.0-6.0)
[2021-05-12 06:52] LABS: ALT (SGPT) 108 U/L (8-55); AST (SGOT) 471 U/L (5-34); Albumin 3.8 g/dL (3.5-5.0); Alkaline Phosphatase 83 U/L (40-110); Anion Gap 14 mmol/L (10-20); BUN (Urea Nitrogen) 22 mg/dL (8.4-25.7); Bilirubin, Total 0.8 mg/dL (0.2-1.2); Calc. Creatinine Clearance 81 mL/min (70-130); Calcium 8.4 mg/dL (7.8-10.44); Carbon Dioxide 20 mmol/L (22-29); Chloride 104 mmol/L (98-107); Globulin 3.1 g/dL (2.4-3.5); Glucose 397 mg/dL (70-105); Potassium 5.5 mmol/L (3.5-5.1); Protein, Total 6.9 g/dL (6.0-8.3); Sodium 132 mmol/L (136-145)
[2021-05-12 06:59] LABS: Actual Bicarbonate (HCO3a) 19.5 mEq/L (22-28); Base Excess (BEa) -4.4 mEq/L (-2.0 to +3.0); CO2 Tension 32.3 mmHg (35.0-45.0); Calcium, Ionized (arterial) 1.06 mmol/L (1.12-1.30); Carboxyhemoglobin (COHb) 0.4 gm% (0.0-3.0); Hemoglobin (Hb) 12.4 g/dL (14.0-18.0); O2 Tension (PaO2), arterial 110.7 mmHg (80.0-100.0); Potassium - ABG Lab 5.12 mmol/L (3.70-5.30)
[2021-05-12 07:01] LABS: ALV-art Gradient 276.725 mmHg (0-20); Puncture Site Arterial Line
[2021-05-12] MEDS ORDERED: Carvedilol 3.125 MG TAB PO SCH (08:00)
[2021-05-12] MEDS ORDERED: Carvedilol 6.25 MG TAB PO SCH (08:00)
[2021-05-12] MEDS ORDERED: Carvedilol 25 MG TAB PO SCH (08:00)
[2021-05-12] MEDS ORDERED: Vecuronium 10 MG VIAL IVP PRN (08:18)
[2021-05-12 08:39] LABS: Critical Call Chem Troponin I RESULT DECREASING; Troponin I 484.675 ng/mL (< 0.028)
[2021-05-12] MEDS: Aspirin Chewable 81 MG TAB PO SCH (08:39)
[2021-05-12] MEDS: Clopidogrel Bisulfate 75 MG TAB PO SCH (08:40)
[2021-05-12] MEDS: Pantoprazole 40 MG GRANULES PACKET PER TUBE SCH (08:40)
[2021-05-12] MEDS ORDERED: Clopidogrel Bisulfate 75 MG TAB PO SCH (09:00)
[2021-05-12] MEDS ORDERED: Enoxaparin Sodium 80 MG/0.8 ML SYRINGE SC SCH (09:00)
[2021-05-12] MEDS: NPH, Human Insulin Isophane 300 UNIT/3 ML VIAL SC SCH ×2 (09:06→21:50)
[2021-05-12] MEDS: Furosemide 20 MG/2 ML VIAL SLOW IVP SCH ×2 (09:07→17:55)
[2021-05-12] MEDS ORDERED: Sterile Water 10 ML VIAL IVP PRN (09:13)
[2021-05-12 10:00] VITALS: BMI 30.2
[2021-05-12] MEDS ORDERED: Heparin 10,000 UNITS/ 10 ML VIAL ONE (14:22)
[2021-05-12] MEDS ORDERED: Heparin 25,000 units/D5W 500 ML ONE ×2 (14:24)
[2021-05-12] MEDS ORDERED: Communication Order-Pharmacy FS ONE (14:37)
[2021-05-12 15:39] LABS: Hemoglobin 12.1 g/dL (14.0-18.0); Platelet Count 137 thou/uL (130-400)
[2021-05-12 16:00] LABS: Anion Gap 19 mmol/L (10-20); BUN (Urea Nitrogen) 29 mg/dL (8.4-25.7); Calc. Creatinine Clearance 77 mL/min (70-130); Calcium 8.5 mg/dL (7.8-10.44); Carbon Dioxide 14 mmol/L (22-29); Chloride 108 mmol/L (98-107); Glucose 245 mg/dL (70-105); Potassium 5.1 mmol/L (3.5-5.1); Sodium 136 mmol/L (136-145)
[2021-05-12 17:29] LABS: Anion Gap 13 mmol/L (10-20); BUN (Urea Nitrogen) 30 mg/dL (8.4-25.7); Calc. Creatinine Clearance 76 mL/min (70-130); Calcium 8.6 mg/dL (7.8-10.44); Carbon Dioxide 21 mmol/L (22-29); Chloride 107 mmol/L (98-107); Glucose 229 mg/dL (70-105); Potassium 4.6 mmol/L (3.5-5.1); Sodium 136 mmol/L (136-145)
[2021-05-12 21:44] LABS: Hemoglobin 10.9 g/dL (14.0-18.0)
[2021-05-12] MEDS: Heparin 10,000 UNITS/ 10 ML VIAL SLOW IVP SCH (23:45)
[2021-05-13] MEDS: Propofol 1,000 MG/100 ML VIAL IV PRN (01:18)
[2021-05-13 05:36] LABS: #Eosinphils 0.1 thou/uL (0.0-0.7); #Lymphocytes 2.3 thou/uL (1.20-3.40); #Monocytes 1.1 thou/uL (0.11-0.59); #Neutrophils 12.1 thou/uL (1.40-6.50); %Basophils 0.2 % (0.0-1.0); %Eosinophils 0.3 % (0.0-10.0); %Lymphocytes 14.7 % (21.0-51.0); %Monocytes 6.9 % (0.0-10.0); %Neutrophils 77.9 % (42.0-75.0); Hemoglobin 10.9 g/dL (14.0-18.0); Mean Corpuscular HGB CONC 31.8 g/dL (32.0-36.0); Mean Corpuscular Hemoglobin 23.5 pg (27.0-31.0); Mean Corpuscular Volume 74.1 fL (78.0-98.0); Platelet Count 168 thou/uL (130-400); RBC Distribution Width 12.8 % (11.5-14.5); Red Blood Cell (RBC) Count 4.63 mill/uL (4.70-6.10); White Blood Cell (WBC) Count 15.5 thou/uL (4.8-10.8)
[2021-05-13 06:09] LABS: Anion Gap 13 mmol/L (10-20); BUN (Urea Nitrogen) 36 mg/dL (8.4-25.7); Calc. Creatinine Clearance 66 mL/min (70-130); Calcium 8.7 mg/dL (7.8-10.44); Carbon Dioxide 24 mmol/L (22-29); Chloride 106 mmol/L (98-107); Glucose 108 mg/dL (70-105); Potassium 4.2 mmol/L (3.5-5.1); Sodium 139 mmol/L (136-145)
[2021-05-13 07:19] LABS: Actual Bicarbonate (HCO3a) 20.5 mEq/L (22-28); Base Excess (BEa) -3.8 mEq/L (-2.0 to +3.0); CO2 Tension 34.7 mmHg (35.0-45.0); Calcium, Ionized (arterial) 1.12 mmol/L (1.12-1.30); Carboxyhemoglobin (COHb) 0.3 gm% (0.0-3.0); Hemoglobin (Hb) 11.9 g/dL (14.0-18.0); O2 Tension (PaO2), arterial 62.8 mmHg (80.0-100.0); Potassium - ABG Lab 3.98 mmol/L (3.70-5.30); pH, Arterial 7.39 (7.35-7.45)
[2021-05-13] MEDS: Aspirin Chewable 81 MG TAB PO SCH (07:45)
[2021-05-13] MEDS: Furosemide 20 MG/2 ML VIAL SLOW IVP SCH ×2 (07:45→12:56)
[2021-05-13] MEDS: Clopidogrel Bisulfate 75 MG TAB PO SCH (07:45)
[2021-05-13] MEDS: Pantoprazole 40 MG GRANULES PACKET PER TUBE SCH (07:45)
[2021-05-13 07:46] LABS: ALV-art Gradient 250.325 mmHg (0-20); Puncture Site Arterial Line
[2021-05-13] MEDS: Heparin 10,000 UNITS/ 10 ML VIAL SLOW IVP SCH (07:54)
[2021-05-13] MEDS: NPH, Human Insulin Isophane 300 UNIT/3 ML VIAL SC SCH (09:06)
[2021-05-13] MEDS ORDERED: Nitroglycerin 50 MG/250 ML BOT 250 ML IVPB SCH (10:15)
[2021-05-13 10:38] LABS: Puncture Site Arterial Line
[2021-05-13] MEDS ORDERED: Sodium Chloride For Inhalation 0.9% 3 ML NEB ONE (11:58)
[2021-05-13] MEDS ORDERED: Heparin 25,000 units/D5W 500 ML IV SCH (13:00)
[2021-05-13 13:56] VITALS: TEMP 98.1
[2021-05-13 14:46] VITALS: BP 115/72
== END 2021-05-13 16:38 | disposition critical access hospital (66) | DRG 270 ==
LOC: ERS 16:38 → CCL 22:29 → CCU 23:23
PROVIDERS: ADMIT Family Medicine; ATTEND Internal Medicine
PROC: 02C03ZZ Extirpation of Matter from Coronary Artery, One Artery, Percutaneous Approach (ICD-10-PCS; 2021-05-11)
PROC: 027036Z Dilation of Coronary Artery, One Artery with Three Drug-eluting Intraluminal Devices, Percutaneous Approach (ICD-10-PCS; 2021-05-11)
PROC: 0BH17EZ Insertion of Endotracheal Airway into Trachea, Via Natural or Artificial Opening (ICD-10-PCS; principal; 2021-05-12)
PROC: 5A1945Z Respiratory Ventilation, 24-96 Consecutive Hours (ICD-10-PCS; 2021-05-12)
PROC: 5A02210 Assistance with Cardiac Output using Balloon Pump, Continuous (ICD-10-PCS; 2021-05-12)
PROC: 0TJB8ZZ Inspection of Bladder, Via Natural or Artificial Opening Endoscopic (ICD-10-PCS; 2021-05-12)
DX: I21.09 ST elevation (STEMI) myocardial infarction involving other coronary artery of anterior wall (principal); I50.31 Acute diastolic (congestive) heart failure; J96.01 Acute respiratory failure with hypoxia; N17.9 Acute kidney failure, unspecified; I13.0 Hypertensive heart and chronic kidney disease with heart failure and stage 1 through stage 4 chronic kidney disease, or unspecified chronic kidney disease; E87.1 Hypo-osmolality and hyponatremia; Z20.822 Contact with and (suspected) exposure to COVID-19; E11.65 Type 2 diabetes mellitus with hyperglycemia; R91.1 Solitary pulmonary nodule; F17.210 Nicotine dependence, cigarettes, uncomplicated; I25.10 Atherosclerotic heart disease of native coronary artery without angina pectoris; E87.5 Hyperkalemia; N18.30 Chronic kidney disease, stage 3 unspecified; N35.919 Unspecified urethral stricture, male, unspecified site; E11.22 Type 2 diabetes mellitus with diabetic chronic kidney disease; D63.1 Anemia in chronic kidney disease; E78.00 Pure hypercholesterolemia, unspecified; Z79.82 Long term (current) use of aspirin; Z79.4 Long term (current) use of insulin; Z79.899 Other long term (current) drug therapy; Z88.2 Allergy status to sulfonamides; Z91.018 Allergy to other foods; Z95.5 Presence of coronary angioplasty implant and graft; Z79.02 Long term (current) use of antithrombotics/antiplatelets; I25.2 Old myocardial infarction
CPT/HCPCS: 33967; 36415; 36416; 71045; 71275; 74174; 80048; 80053; 80061; 82553; 82805; 83036; 83690; 83880; 84484; 85025; 85347; 85379; 85730; 93005; 93010; 93306; 93451; 94002; 94003; 94760; C1725; C1874; J0330; J1644; J1650; J1815; J1940; J2001; J2060; J2270; J2405; J2704; J3010; J3246; J7050; U0002

== ENCOUNTER 2023-10-26 06:48 | Day surgery (SDC) | payer OTHER ==
[2023-10-25 12:20] VITALS: BMI 29.5
[2023-10-26 07:39] LABS: #Basophils 0.05 10x3/uL (0.0-0.2); %Basophils 0.4 % (0.0-1.0); %Eosinophils 2.8 % (0.0-10.0); %Lymphocytes 11.7 % (21.0-51.0); %Monocytes 7.7 % (0.0-10.0); %Neutrophils 77.2 % (42.0-75.0); Hematocrit 40.8 % (42.0-52.0); Hemoglobin 12.8 g/dL (14.0-18.0); Mean Corpuscular HGB CONC 31.4 g/dL (32.0-36.0); Mean Corpuscular Hemoglobin 21.2 pg (27.0-31.0); Mean Corpuscular Volume 67.5 fL (78.0-98.0); Mean Platelet Volume 10.6 fL (7.4-10.4); Platelet Count 172 10x3/uL (130-400); Red Blood Cell (RBC) Count 6.04 mill/uL (4.70-6.10)
[2023-10-26 07:50] LABS: ALT (SGPT) 33 U/L (8-55); AST (SGOT) 37 U/L (5-34); Albumin 3.8 g/dL (3.5-5.0); Alkaline Phosphatase 82 U/L (40-110); Anion Gap 11 mmol/L (10-20); BUN (Urea Nitrogen) 36 mg/dL (8.4-25.7); Bilirubin, Total 0.6 mg/dL (0.2-1.2); Calc. Creatinine Clearance 92 mL/min (70-130); Calcium 8.9 mg/dL (7.8-10.44); Carbon Dioxide 21 mmol/L (22-29); Chloride 108 mmol/L (98-107); Estimated GFR 62; Globulin 3.3 g/dL (2.4-3.5); Glucose 117 mg/dL (70-105); Potassium 3.9 mmol/L (3.5-5.1); Protein, Total 7.1 g/dL (6.0-8.3); Sodium 136 mmol/L (136-145)
[2023-10-26] MEDS ORDERED: Nitroglycerin 50 MG/250 ML BOT 0 ML ONE (07:56)
[2023-10-26] MEDS ORDERED: Heparin 10,000 UNITS/ 10 ML VIAL ONE (07:56)
[2023-10-26] MEDS ORDERED: fentaNYL 50 mcg/mL 1 mL Vial ONE (08:20)
[2023-10-26] MEDS ORDERED: Midazolam HCl 2 mg/2 ml Vial ONE (08:21)
[2023-10-26] MEDS ORDERED: Nitroglycerin 2% Ointment 1 INCH/1 GM Packet ONE (08:58)
[2023-10-26] MEDS ORDERED: Iopamidol 370 76% 100 ML VIAL ONE (11:55)
== END 2023-10-26 13:50 | disposition home or self-care (01) ==
LOC: CCL 06:48
PROVIDERS: ATTEND Internal Medicine Cardiovascular Disease
PROC: 4A023N7 Measurement of Cardiac Sampling and Pressure, Left Heart, Percutaneous Approach (ICD-10-PCS; principal; 2023-10-26)
DX: I25.10 Atherosclerotic heart disease of native coronary artery without angina pectoris (principal); E11.9 Type 2 diabetes mellitus without complications; I11.0 Hypertensive heart disease with heart failure; I50.22 Chronic systolic (congestive) heart failure; E78.00 Pure hypercholesterolemia, unspecified; N28.9 Disorder of kidney and ureter, unspecified; I25.2 Old myocardial infarction; Z79.4 Long term (current) use of insulin; Z72.0 Tobacco use; Z79.82 Long term (current) use of aspirin; Z79.899 Other long term (current) drug therapy; Z88.2 Allergy status to sulfonamides
CPT/HCPCS: 36416; 80053; 85025; 93458; 99152; 99153; C1769; C1887; C1894; J1644; J2250; J3010; Q9967

== ENCOUNTER 2025-04-05 06:08 | Day surgery (SDC) | payer OTHER ==
[2025-04-04 09:35] VITALS: BMI 29.5
[2025-04-05] MEDS ORDERED: Ketamine In 0.9 % NaCl 50 MG/5 ML SYRINGE ONE (08:14)
[2025-04-05] MEDS ORDERED: PROPOFOL 200 MG/20 ML VIAL ONE (08:24)
== END 2025-04-05 10:04 | disposition home or self-care (01) ==
LOC: SDC 06:08
PROVIDERS: ATTEND Internal Medicine Gastroenterology
PROC: 0DJD8ZZ Inspection of Lower Intestinal Tract, Via Natural or Artificial Opening Endoscopic (ICD-10-PCS; principal; 2025-04-05)
DX: Z12.11 Encounter for screening for malignant neoplasm of colon (principal); E11.22 Type 2 diabetes mellitus with diabetic chronic kidney disease; I13.0 Hypertensive heart and chronic kidney disease with heart failure and stage 1 through stage 4 chronic kidney disease, or unspecified chronic kidney disease; N18.32 Chronic kidney disease, stage 3b; I50.23 Acute on chronic systolic (congestive) heart failure; K21.9 Gastro-esophageal reflux disease without esophagitis; E78.5 Hyperlipidemia, unspecified; Z79.4 Long term (current) use of insulin; Z79.899 Other long term (current) drug therapy; Z88.2 Allergy status to sulfonamides; Z79.84 Long term (current) use of oral hypoglycemic drugs; Z87.891 Personal history of nicotine dependence; Z91.018 Allergy to other foods
CPT/HCPCS: 36416; J2250; J2704; J3490